=== PATIENT | female | born 1965 | race Caucasian/White ===

== ENCOUNTER 2023-07-13 06:25 | Emergency (ER) | payer MEDICAID ==
[~2023-07-13] VITALS: Ht 157.5 cm; Wt 73.5 kg
[2023-07-13 06:35] VITALS: BP 149/82; PULSE 86; RESP 18; TEMP 97; O2SAT 99
[2023-07-13] MEDS ORDERED: PENI500T20 PO (06:42)
[2023-07-13] MEDS ORDERED: NAPR-1704 PO (06:42)
[2023-07-13 06:46] VITALS: BP 149/82; PULSE 86; RESP 18; TEMP 97; O2SAT 99
== END 2023-07-13 06:46 | disposition home or self-care (01) ==
LOC: MED 06:25
DX: K04.7 Periapical abscess without sinus (principal); Z79.899 Other long term (current) drug therapy
CPT/HCPCS: 99283